=== PATIENT | male | born 1990 | race Two or more races ===

== ENCOUNTER 2018-02-03 09:22 | Emergency (ER) | payer BC ==
[2018-02-03 09:25] VITALS: Ht 167.6 cm
[2018-02-03 10:52] VITALS: BP 139/88
== END 2018-02-03 10:53 | disposition home or self-care (01) ==
LOC: ED 09:22
DX: R51 Headache (principal); H57.8 Other specified disorders of eye and adnexa
CPT/HCPCS: J1885